=== PATIENT | female | born 1945 | race Two or more races ===

== ENCOUNTER 2016-04-25 12:56 | Emergency (ER) | payer SELFPAY ==
[~2016-04-25] VITALS: Ht 167.6 cm; Wt 77.1 kg
[2016-04-25] MEDS ORDERED: LORAZEPAM INJ 2 MG/ML VIAL IV ONE (13:30)
[2016-04-25 13:31] LABS: BASOPHILS # (AUTO) 0.1 /CMM (0.0-0.2); BASOPHILS % (AUTO) 1.2 % (0.0-2.0); DIFF TOTAL % 100 %; EOSINOPHILS # (AUTO) 0.1 /CMM (0.0-0.7); EOSINOPHILS % (AUTO) 1.7 % (0.0-6.0); HEMATOCRIT 41 % (33-45); HEMOGLOBIN 13.6 g/dL (11.5-14.8); LYMPHOCYTES # (AUTO) 2.7 /CMM (0.8-4.8); LYMPHOCYTES % (AUTO) 37.7 % (20.0-44.0); MEAN CORPUSCULAR HEMOGLOBIN 30 PG (26.0-33.0); MEAN CORPUSCULAR HGB CONC 33 g/dl (31.0-36.0); MEAN CORPUSCULAR VOLUME 91 fL (82-100); MONOCYTES # (AUTO) 0.6 /CMM (0.1-1.30); MONOCYTES % (AUTO) 8.2 % (2.0-12.0); NEUTROPHILS # (AUTO) 3.8 /CMM (1.8-8.9); NEUTROPHILS % (AUTO) 51.2 % (43.0-81.0); PLATELET COUNT (AUTO) 303 /CMM (150-450); RED BLOOD CELL COUNT(AUTO) 4.49 MIL/uL (4.0-5.2); WHITE BLOOD COUNT (AUTO) 7.3 K/uL (4.3-11.0)
[2016-04-25] MEDS ORDERED: LORAZEPAM INJ 2 MG/ML VIAL ONE (13:31)
[2016-04-25 13:42] LABS: ANION GAP 15 (5-14); CALCIUM, SERUM 9.4 mg/dL (8.5-10.1); CARBON DIOXIDE 25 mmol/L (21-32); CHLORIDE 103 mmol/L (98-107); CREATININE 0.9 mg/dL (0.6-1.3); GFR 62 mL/min (>60); GLUCOSE 92 mg/dL (74-106); SODIUM SERUM 139 mmol/L (136-145); UREA NITROGEN, BLOOD 15 mg/dL (7-18)
[2016-04-25 13:49] LABS: INR 0.99 (0.87-1.13); PROTHROMBIN TIME 10.4 SECS (9.5-12.7)
[2016-04-25 13:50] LABS: TROPONIN I < 0.017 ng/mL (0.00-0.056)
[2016-04-25 14:15] VITALS: BP 128/72
== END 2016-04-25 14:16 | disposition home or self-care (01) ==
LOC: ER 12:59 → EDBD 12:59 → ER 14:16
DX: R06.4 Hyperventilation (principal); F41.9 Anxiety disorder, unspecified; F43.9 Reaction to severe stress, unspecified; I10 Essential (primary) hypertension; I25.2 Old myocardial infarction
CPT/HCPCS: 36415; 71010; 80048; 84484; 85025; 85730; 93005; 96374; 99285; A4606; J2060; Z7610

== ENCOUNTER 2017-03-25 11:00 | Inpatient (IN) | payer MEDICAID ==
[~2017-03-25] VITALS: Ht 157.5 cm; Wt 68.5 kg
--- NOTE | 2017-03-25 11:15 | NUR ---
PRESENTS TO ER C/O ON/OFF CHEST PAIN X 1 WK, LEFT ARM NUMBNESS. PATIENT A/OX 4. BREATHING EVEN AND UNLABORED. NO SOB, NO DISTRESS. VITALS STABLE. SAFETY AND COMFORT MEASURES IN PLACE. AWAITING MD ORDERS.
[2017-03-25] MEDS ORDERED: ASPIRIN 325 MG TABLET ONE (11:18)
--- NOTE | 2017-03-25 11:23 | NUR ---
NEW IV STARTED ON LAC, 20 G. BLOOD DRAWN AND SENT TO LAB.
--- NOTE | 2017-03-25 11:26 | NUR ---
PATIENT MEDICATED PER MD ORDERS.
[2017-03-25] MEDS ORDERED: ASPIRIN 325 MG TABLET PO ONE (11:30)
[2017-03-25 11:31] LABS: BASOPHILS % (AUTO) 0.4 % (0.0-2.0); EOSINOPHILS # (AUTO) 0.1 /CMM (0.0-0.7); EOSINOPHILS % (AUTO) 1.4 % (0.0-6.0); HEMATOCRIT 43 % (33-45); HEMOGLOBIN 14.1 g/dL (11.5-14.8); LYMPHOCYTES # (AUTO) 2.5 /CMM (0.8-4.8); LYMPHOCYTES % (AUTO) 36.4 % (20.0-44.0); MEAN CORPUSCULAR HEMOGLOBIN 30 PG (26.0-33.0); MEAN CORPUSCULAR HGB CONC 33 g/dl (31.0-36.0); MEAN CORPUSCULAR VOLUME 92 fL (82-100); MONOCYTES # (AUTO) 0.6 /CMM (0.1-1.30); MONOCYTES % (AUTO) 8.4 % (2.0-12.0); NEUTROPHILS # (AUTO) 3.6 /CMM (1.8-8.9); NEUTROPHILS % (AUTO) 53.4 % (43.0-81.0); PLATELET COUNT (AUTO) 306 /CMM (150-450); RDW COEFFICIENT OF VARIATION 11.9 (11.5-15.0); RED BLOOD CELL COUNT(AUTO) 4.66 MIL/uL (4.0-5.2); WHITE BLOOD COUNT (AUTO) 6.8 K/uL (4.3-11.0)
[2017-03-25 11:40] LABS: CALCIUM, SERUM 9.8 mg/dL (8.5-10.1); CARBON DIOXIDE 29 mmol/L (21-32); CHLORIDE 105 mmol/L (98-107); CREATININE 0.9 mg/dL (0.6-1.3); GLUCOSE 104 mg/dL (74-106); POTASSIUM 3.6 mmol/L (3.5-5.1); SODIUM SERUM 142 mmol/L (136-145); UREA NITROGEN, BLOOD 16 mg/dL (7-18)
[2017-03-25 11:46] LABS: ALANINE AMINOTRANSFERASE 25 U/L (12-78); ALBUMIN 4.3 g/dL (3.4-5.0); ALKALINE PHOSPHATASE 68 U/L (46-116); ASPARTATE AMINOTRANSFERASE 19 U/L (15-37); BILIRUBIN,TOTAL 0.2 mg/dL (0.2-1.0); TOTAL PROTEIN, SERUM 9.2 g/dL (6.4-8.2)
[2017-03-25 11:48] LABS: TROPONIN I < 0.017 ng/mL (0.00-0.056)
[2017-03-25 11:56] LABS: INR 0.98 (0.87-1.13); PROTHROMBIN TIME 10.2 SECS (9.5-12.7)
[2017-03-25] MEDS ORDERED: ASPI-991 PO (11:56)
[2017-03-25] MEDS ORDERED: ALPR0.5T8 PO (11:56)
[2017-03-25] MEDS ORDERED: LISI-603 PO (11:56)
[2017-03-25] MEDS ORDERED: LORA10TA7 PO (11:56)
[2017-03-25] MEDS ORDERED: HYDR25TA4 PO (11:56)
--- NOTE | 2017-03-25 12:54 | NUR ---
REPORT GIVEN TO GAYATRI VIDAL FOR [facility] TELE 114-1
--- NOTE | 2017-03-25 13:10 | NUR ---
PATIENT TRANSPORTED TO [facility] VIA ACLS PROTOCOL. ALEJANDRO MENDIETA TO PROVIDE ANASTACIA.
--- NOTE | 2017-03-25 13:22 | NUR ---
RN NOTES RECEIVED PT VIA WENDI FROM ER, A&0X3, MAINLY [place] SPEAKING, DAUGHTER AT BEDSIDE. PT COMPLAINTS OF SLIGHT CHEST 3/10. LAC 20G IV SITE INTACT NO IVF. SR ON TELE MONITOR HR 61. AWAITING ADMITTING ORDERS FROM DR BROOKS. BED LOCKED AND IN LOWEST POSITION, CALL LIGHT WITHIN REACH, SIDE RAILS UPX3, WILL CONT TO LUCIE.
[2017-03-25 13:30] VITALS: BP 140/62
[2017-03-25] MEDS ORDERED: ONDANSETRON HCL/PF 4 MG/2 ML VIAL IVP PRN (14:00)
[2017-03-25] MEDS ORDERED: *INSULIN REGULAR(HUMULIN R)HUM 100 UNIT/ML VIAL SQ PRN (14:00)
[2017-03-25] MEDS ORDERED: INSULIN REGULAR, HUMAN 100 UNIT/ML 3 ML VIAL SQ PRN (14:00)
[2017-03-25] MEDS ORDERED: ZOLPIDEM TARTRATE 5 MG TABLET PO PRN (14:00)
[2017-03-25] MEDS ORDERED: ALPRAZOLAM 0.5 MG TABLET PO PRN (14:00)
[2017-03-25] MEDS ORDERED: NITROGLYCERIN 0.4 MG/TAB BOTTLE SL PRN (14:00)
[2017-03-25] MEDS ORDERED: MORPHINE SULFATE INJ 2 MG/ML DISP.SYRIN IV PRN ×2 (14:00)
[2017-03-25] MEDS ORDERED: DEXTROSE 50%-WATER 50 ML DISP.SYRIN IV PRN (14:00)
[2017-03-25] MEDS: BLOOD SUGAR DIAGNOSTIC 1 EACH STRIP IN SCH ×2 (14:30→16:39)
[2017-03-25 16:00] VITALS: BP 137/58
--- NOTE | 2017-03-25 18:30 | NUR ---
RN NOTES PT REMAINED IN STABLE CONDITION, NO FURTHER COMPLAINTS OF CHEST PAIN. FAMILY AT BEDSIDE. CONSENT OBTAINED FOR STRESS TEST IN AM. ALL NEEDS MET. NO SIGNIFICANT CHANGES THROUGHOUT THE SHIFT. WILL ENDORSE TO ONCOMING SHIFT.
[2017-03-25 20:00] VITALS: BP 113/77
[2017-03-25] MEDS: CARVEDILOL 6.25 MG TABLET PO SCH (20:33)
[2017-03-25] MEDS: HYDROCODONE/APAP 5/325MG 1 EACH TABLET PO PRN (20:36)
[2017-03-25] MEDS ORDERED: SIMVASTATIN 20 MG TABLET PO SCH (22:00)
[2017-03-26] VITALS: BP_SYST 113; BP_SYST 125; BP_DIAS 56; BP_DIAS 77
[2017-03-26 04:00] VITALS: BP 134/59
[2017-03-26 08:00] VITALS: BP 120/59
[2017-03-26 08:31] LABS: INR 1.01 (0.87-1.13); PROTHROMBIN TIME 10.5 SECS (9.5-12.7)
[2017-03-26] MEDS ORDERED: REGADENOSON 0.4 MG/5 ML DISP.SYRIN IVP ONE (08:40)
[2017-03-26] MEDS ORDERED: HYDROCHLOROTHIAZIDE 25 MG TABLET PO SCH (09:00)
[2017-03-26] MEDS ORDERED: LORATADINE 10 MG TABLET PO SCH (09:00)
[2017-03-26] MEDS ORDERED: ASPIRIN EC 81 MG TABLET.DR PO SCH (09:00)
[2017-03-26] MEDS ORDERED: ASPIRIN 81 MG TAB.CHEW PO SCH (09:00)
[2017-03-26] MEDS ORDERED: LISINOPRIL (20MG) 20 MG TABLET PO SCH (09:00)
[2017-03-26] MEDS: CARVEDILOL 6.25 MG TABLET PO SCH (09:29)
[2017-03-26] MEDS: HYDROCODONE/APAP 5/325MG 1 EACH TABLET PO PRN (09:32)
[2017-03-26 11:49] LABS: *SPE A/G RATIO 1.2 (0.7-1.7); *SPE ALBUMIN 4.3 g/dL (2.9-4.4); *SPE ALPHA-1-GLOBULIN 0.2 g/dL (0.0-0.4); *SPE ALPHA-2-GLOBULIN 0.8 g/dL (0.4-1.0); *SPE BETA GLOBULIN 1.2 g/dL (0.7-1.3); *SPE GLOBULIN, TOTAL 3.7 g/dL (2.2-3.9); *SPE M-SPIKE Not Observed g/dL (Not Observed); *SPEGAMMA GLOBULIN 1.5 g/dL (0.4-1.8)
[2017-03-26 13:52] LABS: BASOPHILS # (AUTO) 0.1 /CMM (0.0-0.2); CALCIUM, SERUM 9.3 mg/dL (8.5-10.1); CREATININE 0.8 mg/dL (0.6-1.3); EOSINOPHILS # (AUTO) 0.2 /CMM (0.0-0.7); HEMATOCRIT 40 % (33-45); HEMOGLOBIN 13.1 g/dL (11.5-14.8); LYMPHOCYTES # (AUTO) 3.1 /CMM (0.8-4.8); LYMPHOCYTES % (AUTO) 50.4 % (20.0-44.0); MAGNESIUM 1.9 mg/dL (1.8-2.4); MEAN CORPUSCULAR HEMOGLOBIN 31 PG (26.0-33.0); MEAN CORPUSCULAR HGB CONC 33 g/dl (31.0-36.0); MEAN CORPUSCULAR VOLUME 93 fL (82-100); MONOCYTES # (AUTO) 0.5 /CMM (0.1-1.30); MONOCYTES % (AUTO) 7.4 % (2.0-12.0); NEUTROPHILS # (AUTO) 2.3 /CMM (1.8-8.9); NEUTROPHILS % (AUTO) 38.2 % (43.0-81.0); PLATELET COUNT (AUTO) 251 /CMM (150-450); POTASSIUM 4.1 mmol/L (3.5-5.1); RDW COEFFICIENT OF VARIATION 12.6 (11.5-15.0); RED BLOOD CELL COUNT(AUTO) 4.28 MIL/uL (4.0-5.2); WHITE BLOOD COUNT (AUTO) 6.1 K/uL (4.3-11.0)
[2017-03-26 16:00] VITALS: BP 104/56
--- NOTE | 2017-03-26 16:00 | NUR ---
ENROLLMENT SPECIALIST NOTE PT DC HOME TRANSPORTED VIA PRIVATE CAR. PT WALKED OUT BY ANGIE MURPHY. EDUCATED PT ON CHEST PAIN IN [place] AND IMPORTANCE OF F/U WITH PCP IN 1-2 WEEKS. DC IV AND ID BAND SKIN INTACT. RX FOR XANAX GIVEN TO PT. ALL ORDERED CARRIED OUT ALL QUESTIONS ANSWERED. DC INSTRUCTIONS SIGNED. Addendum: 03/26/17 at 1723 by CARYL CHACKO RN RX FOR SIMVASTATIN LDL 143 LEVI BARONE AWARE. PT WILL CORN MILLER RX.
== END 2017-03-26 16:42 | disposition home or self-care (01) | DRG 203 ==
LOC: ER 11:02 → TELE1 13:08 → MEDSG1 03-26 11:01
PROVIDERS: ADMIT Internal Medicine; ATTEND Internal Medicine
DX: M94.0 Chondrocostal junction syndrome [Tietze] (principal); I10 Essential (primary) hypertension; E78.5 Hyperlipidemia, unspecified; F41.9 Anxiety disorder, unspecified; Z86.73 Personal history of transient ischemic attack (TIA), and cerebral infarction without residual deficits
CPT/HCPCS: 36415; 71010-TC; 80048-TC; 80061-TC; 80076-TC; 82150-TC; 82962-TC; 83690-TC; 83735-TC; 84100-TC; 84155; 84165; 84484-TC; 85025-TC; 85610-TC; 85730-TC; 87081-TC; A4606; A9502; J1815; J2785; Z7610